=== PATIENT | female | born 1965 | race African-American/Black ===

== ENCOUNTER 2020-07-21 09:14 | Day surgery (SDC) | payer SELFPAY ==
[2020-07-14 14:17] VITALS: BMI 27.3
--- OUTSIDE RECORDS SUMMARY | 2020-07-21 09:24 | XMS ---
:1965 Author Organization [facility] Support Name Relationship Address Phone [facility] Unavailable [address] [place] [address] TRINY IBARRA DAUGHTER [address] [place] [address] Re-disclosure Warning The records that you are about to access may contain information from federally- assisted alcohol or drug abuse programs. If such information is present, then the following federally mandated warning applies: This information has been disclosed to you from records protected by federal confidentiality rules (42 CFR part 2). The federal rules prohibit you from making any further disclosure of this information unless further disclosure is expressly permitted by the written consent of the person to whom it pertains or as otherwise permitted by 42 CFR part 2. A general authorization for the release of medical or other information is NOT sufficient for this purpose. The Federal rules restrict any use of the information to criminally investigate or prosecute any alcohol or drug abuse patient.The records that you are about to access may contain highly sensitive health information, the redisclosure of which is protected by Article 27-F of the [facility] Public Health law. If you continue you may haveaccess to information: Regarding HIV / AIDS; Provided by facilities licensed or operated by the [facility] Office of Mental Health; or Provided by the [facility] Office for People With Developmental Disabilities. If such information is present, then the following [facility] mandated warning applies: This information has been disclosed to you from confidential records which are protected by state law. State law prohibits you from making any further disclosure of this information without the specific written consent of the person to whom it pertains, or as otherwise permitted by law. Any unauthorized further disclosure in violation of state law may result in a fine or prison sentence or both. A general authorization for the release of medical or other information is NOT sufficient authorization for further disclosure. Insurance Providers Payer name Policy type / Policy ID Covered Covered constitution party's Policy Plan Coverage type constitution party ID relationship to Coley Information coley HIP HMO [id number] SP [id number] 1 Results ID Date Data Source [id number] 07/17/2020 12:18:00 PM EDT [facility] Name Value Range Interpretation Description Data Sup porting Code Source(s) Document(s ) SARS [facility] coronavirus 2 RNA This lab was ordered by DEBRA michaels [facility] and reported by [facility]. Procedure
[2020-07-21] MEDS ORDERED: MIDAZOLAM HCL 2 MG/2 ML SINGLE DOSE VIAL ONE (10:55)
[2020-07-21] MEDS ORDERED: LIDOCAINE HCL/PF 2% SDV 5ML VIAL ONE (10:57)
[2020-07-21] MEDS ORDERED: PROPOFOL 20 ML ONE ×2 (10:57→12:10)
[2020-07-21] MEDS ORDERED: SUCCINYLCHOLINE CHLORIDE 200 MG/10 ML SYRINGE ONE (10:58)
[2020-07-21] MEDS ORDERED: ROCURONIUM BROMIDE 50 MG/5 ML SYRINGE ONE (10:58)
[2020-07-21] MEDS ORDERED: EPINEPHrine/PF 1 MG/1 ML (1:1,000) AMPULE ONE ×2 (10:59→12:12)
[2020-07-21] MEDS ORDERED: BACITRACIN 15 GM TUBE TOPICAL OINTMENT ONE (10:59)
[2020-07-21] MEDS ORDERED: LIDOCAINE HCL 1%, 10 MG/ML (20ML VIAL) ONE ×2 (10:59→12:12)
[2020-07-21] MEDS ORDERED: ONDANSETRON 4 MG/2 ML VIAL IVPUSH PRN (11:52)
[2020-07-21] MEDS ORDERED: oxyCODONE HCL 5 MG TABLET PO PRN ×3 (11:52→15:54)
[2020-07-21] MEDS ORDERED: LIDOCAINE 1%/EPI 1:100000 (20 ML MULTI DOSE VIAL) ONE (12:06)
[2020-07-21] MEDS ORDERED: HYDROmorphone HCL/PF 1 MG/ML VIAL ONE ×2 (12:13→13:16)
[2020-07-21] MEDS ORDERED: ceFAZolin SODIUM 1 GM VIAL ONE (12:19)
[2020-07-21] MEDS ORDERED: DEXAMETHASONE SOD PHOSPHATE 4 MG/1 ML VIAL ONE ×2 (15:20→15:21)
[2020-07-21] MEDS ORDERED: ONDANSETRON 4 MG/2 ML VIAL ONE ×2 (15:20→16:47)
[2020-07-21] MEDS ORDERED: ONDANSETRON 4 MG/2 ML VIAL IVPB PRN (15:54)
--- NOTE | 2020-07-21 15:59 | OP ---
Operative Note - Note: Operative Date: 07/21/20 Pre-Operative Diagnosis: cosmetic Operation: umbilical revision with liposuction to bilateral medial thighs and axillae and fat grafting to bilateral lateral buttocks Post-Operative Diagnosis: Same as Pre-op Anesthesia: General Operative Report Dictated: Yes
[2020-07-21] MEDS ORDERED: LACTATED RINGERS SOLUTION 1,000 ML IV SCH (16:00)
[2020-07-21 16:14] VITALS: TEMP 98.1
[2020-07-21] MEDS ORDERED: oxyCODONE HCL 5 MG TABLET ONE (17:38)
--- NOTE | 2020-07-21 17:39 | OP ---
DATE OF OPERATION: 07/21/2020 PROCEDURE: Liposuction to bilateral axilla and bilateral medial thighs with fat grafting to bilateral lateral buttocks and revision of constricted umbilical scar. ATTENDING SURGEON: Christian Garcia MD LANGUAGE AND LITERATURE DIVISION CHAIR: None. ANESTHESIA: General endotracheal anesthesia. DESCRIPTION OF PROCEDURE: Patient was marked in the holding area. Risks, benefits, alternatives to the procedure were discussed, understood, and agreed to proceed. The patient was given a gram of Ancef preoperatively. She was brought to the operating room and placed in a supine position. She was prepped in standing position and then laid on sterile drapes after anesthesia was given. Position was carefully checked. All pressure points were carefully padded. Prepped and draped. A time-out was called. Patient, procedure, site, sides were verified. At this point, the periumbilical scar was injected with a total of 7 mL of 1% lidocaine with 1:100,000 epinephrine. After this was completed, the wetting solution was infiltrated to each of the planned areas of liposuction. Total infiltration was 2100 mL. The wetting solution was a mixture of 1 L of LR, 20 mL of 1% lidocaine plain, and 1 ampule 1:100,000 epinephrine. At this point after the wetting solution was infiltrated, the constricting circular scar of the umbilicus was incised, and it was removed. The residual deep skin of the umbilicus was then modified with 3 separate Z-plasties at 12 o'clock, 3 o'clock, and 9 o'clock. These corresponded with the Z-plasty incision on the abdominal skin incision. The flaps were transposed on one another and inset with 5-0 nylon suture. The remainder of the umbilicus was then inset with a series of interrupted, buried, deep dermal 4-0 Monocryl sutures followed by a series of interrupted 5-0 nylon suture. The umbilicus was patent and viable. Attention was then turned toward the liposuction. The SAFE technique of liposuction was performed with pre and postoperative tunneling with 4-mm basket-tipped cannula. After the pre tunneling, liposuction was performed with a combination of deep 4-mm cannulas and more superficial 3-mm cannulas. This was with a combination of traditional and power-assisted liposuction. Fat was harvested using a [employer] fat harvesting system. The amount of fat harvested and processed was 325 mL, which then yielded graftable fat of 270 mL. The fat was washed, processed, and transferred into 10-mL syringes for fat transfer. Liposuction continued without fat harvesting in multiple additional areas as described, and the total lipoaspirate was 250 mL from the large right axilla and upper back roll, 200 mL from the small left upper axilla and back roll, 475 mL from the right medial thigh, and 450 mL from the left medial thigh. Post tunneling with a basket-tipped cannula was performed. Patient was observed in multiple positions to ensure a smooth, even contour of the medial thighs. The liposuction holes, which were 5-mm stab wounds, were closed with 5-0 nylon suture. For the fat that was fully harvested, several 2-mm stab wound incisions were made with an 11-blade scalpel. The marked areas for fat grafting were anterolaterally, laterally, and posterolaterally. Using Bowen technique with microdroplet fat deposition, 10-mL syringes, and Bowen cannulas, the fat was injected entirely in the subcutaneous plane. On the left side, which was the more deficient side, a total of 150 mL of fat was grafted, and on the right side, the less deficient side, a total of 120 mL of fat was grafted. These 11-blade incisions were then closed with a 5-0 nylon suture. Dressings were applied with bacitracin Xeroform to the umbilicus, Steri-Strips to all of the liposuction and injection sites, and a compression garment modified with cutouts to the hips was placed on the patient. A breast binder with ABD gauze for compression of the axilla was applied. Patient awoken from anesthesia having tolerated procedure well. Transferred to recovery without complication. Barber [id number]
[2020-07-21 18:21] VITALS: BP 134/76; PULSE 82
== END 2020-07-21 18:23 | disposition home or self-care (01) ==
LOC: FASU 09:14
PROVIDERS: ATTEND Plastic Surgery
PROC: 0J063ZZ Alteration of Chest Subcutaneous Tissue and Fascia, Percutaneous Approach (ICD-10-PCS; 2020-07-21)
PROC: 0HX7XZZ Transfer Abdomen Skin, External Approach (ICD-10-PCS; 2020-07-21)
PROC: 0J0M3ZZ Alteration of Left Upper Leg Subcutaneous Tissue and Fascia, Percutaneous Approach (ICD-10-PCS; principal; 2020-07-21 12:26)
PROC: 0J0L3ZZ Alteration of Right Upper Leg Subcutaneous Tissue and Fascia, Percutaneous Approach (ICD-10-PCS; 2020-07-21 12:26)
DX: Z41.1 Encounter for cosmetic surgery (principal); L90.5 Scar conditions and fibrosis of skin
CPT/HCPCS: 94760